=== PATIENT | female | born 1965 | race Caucasian/White ===

== ENCOUNTER → 2016-11-03 | Outpatient (CLI) | payer BC | END | disposition home or self-care (01) | LOC: GMAB 14:23 | PROVIDERS: ATTEND Family Medicine | DX: Z00.01 Encounter for general adult medical examination with abnormal findings (principal) ==

== ENCOUNTER → 2017-06-29 | Outpatient (CLI) | payer BC | END | disposition home or self-care (01) | LOC: LAB.O 09:47 | PROVIDERS: ATTEND Internal Medicine Critical Care Medicine | DX: R59.0 Localized enlarged lymph nodes (principal) ==

== ENCOUNTER → 2018-01-05 | Outpatient (CLI) | payer BC ==
--- NOTE | 2018-01-07 10:53 | MRI ---
EXAM DESCRIPTION: MRI right foot CLINICAL HISTORY: Sprain of the right foot. Foot pain. Fracture along the lateral foot. Chronic Achilles tendinosis COMPARISON: None. TECHNIQUE: Multiplanar, multisequence MR images of the right foot FINDINGS: Complete rupture of the peroneus longus tendon distal to the os peroneum with tendon gap about 1.3 cm. Edema within the os peroneum which is proximally retracted, adjacent to the calcaneus. Small focus of edema in the cuboid along the cuboid tunnel. Peroneus brevis tendon intact. Posterior tibial, flexor digitorum and flexor hallux tendons are intact. Dorsiflexion tendons are normal Postsurgical change and sequela of chronic Achilles tendinosis without acute abnormality. Markedly thickened primarily low and to lesser extent intermediate signal throughout the Achilles tendon. Large well-corticated plantar calcaneal spur with chronic middle bundle plantar fascial thickening. No acute abnormality Ankle ligaments are intact No fracture or focal osteochondral lesion. Dorsal marginal osteophytes and capsular enthesophyte talonavicular Midfoot interosseous ligaments are intact. No advanced arthrosis or osteochondral lesion tarsometatarsal, metatarsophalangeal or interphalangeal Multifocal punctate low signal intensity foci scattered throughout the bones of the ankle and foot consistent with osteopoikilosis IMPRESSION: Complete rupture peroneus longus tendon just distal to the os peroneum with tendon gap and proximal retraction os peroneum Chronic Achilles tendinosis and postsurgical change without acute abnormality Electronically signed by: Ramiro Coulter MD 01/07/2018 10:51 AM CDT
== END ==
LOC: MRI 07:03
PROVIDERS: ATTEND Family Medicine
DX: S93.691A Other sprain of right foot, initial encounter (principal)

== ENCOUNTER → 2018-01-18 | Outpatient (CLI) | payer BC ==
--- NOTE | 2018-01-19 09:14 | MRI ---
MRI left foot without contrast INDICATION: Foot pain swelling previous Achilles repair TECHNIQUE: Noncontrast MR imaging left foot FINDINGS: There is thickening and tendinosis of the Achilles but no rupture. There is enthesophyte formation and ossification in the distal Achilles. There is a prominent plantar enthesophyte with thinning of the plantar aponeurosis several centimeters distal to the calcaneal attachment possibly from previous injury. Mild ossification in this area. Numerous tiny sclerotic foci are noted throughout the osseous structures most likely osteopoikilosis. There is diffuse soft tissue edema throughout the foot especially dorsally and laterally. There is an os peroneum producing thickening of the turn of the peroneus longus with mild adjacent tendon sheath fluid. No interstitial split rupture or dislocation noted. Lisfranc ligament complex is intact. No evidence of fracture or stress fracture. There is a prominent peroneal tubercle between the peroneal tendons series 601 image 13. No osteochondral lesion of the talus. Deep deltoid fibers are intact. Several small ossifications are noted along the deep deltoid from prior sprain. 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
== END ==
LOC: MRI 14:00
PROVIDERS: ATTEND Orthopaedic Surgery
DX: S86.311A Strain of muscle(s) and tendon(s) of peroneal muscle group at lower leg level, right leg, initial encounter (principal)

== ENCOUNTER → 2018-05-19 | Outpatient (CLI) | payer BC ==
--- NOTE | 2018-05-19 13:15 | US ---
EXAM DESCRIPTION: Venous,Lower Extremity LT CLINICAL HISTORY: EDEMA COMPARISON: None Available. TECHNIQUE: Left lower extremity venous duplex FINDINGS: Doppler evaluation of the left lower extremity deep veins was performed. Normal color flow is seen in the common femoral, superficial femoral, profunda femoral and greater saphenous veins. Normal flow is seen in the popliteal vein and veins below the knee in the calf. Normal venous compressibility and flow augmentation. IMPRESSION: Negative for evidence of deep venous thrombosis on left lower extremity venous Doppler sonogram. Electronically signed by: Vitaly Shine MD 05/19/2018 1:14 PM CDT
--- NOTE | 2018-05-19 13:16 | US ---
EXAM DESCRIPTION: Venous,Lower Extremity RT CLINICAL HISTORY: EDEMA of the right lower extremity COMPARISON: None Available. TECHNIQUE: Right lower extremity venous duplex FINDINGS: Doppler evaluation of the right lower extremity deep veins was performed. Normal color flow is seen in the common femoral, superficial femoral, profunda femoral and greater saphenous veins. Normal flow is seen in the popliteal vein and veins below the knee in the calf. Normal venous compressibility and flow augmentation. IMPRESSION: Negative for evidence of deep venous thrombosis on right lower extremity venous Doppler sonogram. Electronically signed by: Vitaly Shine MD 05/19/2018 1:14 PM CDT
== END ==
LOC: US 09:30
PROVIDERS: ATTEND Internal Medicine Critical Care Medicine
DX: R60.9 Edema, unspecified (principal)

== ENCOUNTER → 2018-11-23 | Outpatient (CLI) | payer BC | LOC: GMAE 10:58 | PROVIDERS: ATTEND Family Medicine | DX: Z00.00 Encounter for general adult medical examination without abnormal findings (principal) ==

== ENCOUNTER → 2019-04-03 | Outpatient (CLI) | payer BC | LOC: LAB.O 10:57 | PROVIDERS: ATTEND Internal Medicine Critical Care Medicine | DX: C34.90 Malignant neoplasm of unspecified part of unspecified bronchus or lung (principal) ==

== ENCOUNTER → 2019-12-08 | Outpatient (CLI) | payer BC | LOC: GMAE 10:36 | PROVIDERS: ATTEND Family Medicine | DX: Z00.00 Encounter for general adult medical examination without abnormal findings (principal) ==